=== PATIENT | female | born 1980 | race Caucasian/White ===

== ENCOUNTER → 2017-03-10 | Day surgery (SDC) | payer OTHER ==
[~2017-03-10] MED LIST: ACETAMINOPHEN/HYDROcodone 325 MG/5 MG TAB ONE; BUPIVACAINE HCL PF 0.25% 30 ML VIAL ONE; IRON18TA PO; KETOROLAC TROMETHAMINE 60 MG/2 ML (IM) VIAL IM ONE; LACTATED RINGER'S 1000 ML INJ 1,000 ML ONE; MIDAZOLAM HCL 2 MG/2 ML VIAL ONE; ONDANSETRON HCL 4 MG/2 ML VIAL IV PUSH ONE; OXYC-360 PO; PREN0.01 PO; PROPOFOL 200 MG/20 ML AMP IV ONE; ceFAZolin 2 GM PREMIX 50 ML ONE
--- NOTE | 2017-03-11 07:37 | MP ---
cc: ELENA RAY DPM DATE OF SURGERY 03/10/2017 PREOPERATIVE DIAGNOSIS Left fifth digit mass exostosis, left fourth digit, distal phalanx. POSTOPERATIVE DIAGNOSIS Left fifth digit mass exostosis, left fourth digit, distal phalanx. PROCEDURES PERFORMED 1. Wide excision deep soft tissue mass left fourth digit. 2. Nail avulsion with partial excision left fourth digit distal phalanx/exostectomy. SPECIMEN Left fourth digit soft tissue mass. ESTIMATED BLOOD LOSS Less than 3 mL. ANESTHESIA General anesthesia was used. TOURNIQUET TIME A tourniquet wrapped around the base of the fourth digit by means of a [place] drain for approximately 10 minutes. PLAN OF ACTIVITY PACU then DC home once stable per same-day surgery criteria. JUSTIFICATION FOR THE PROCEDURE This is a pleasant 37-year-old female with a painful soft tissue mass biopsied as dermatofibroma. It has grown quite large and she wished to have it removed to allow her to ambulate and wear normal shoe gear. The patient was educated to remove the soft tissue mass in its entirety. Part of the toe will need to be shortened, a strategic if you will, partial digit distal amputation. To remove the soft tissue, a wide excision needs to take place after avulsing the nail and in order for tissue to close, the distal aspect of the distal phalanx needs to be removed to prevent wound dehiscence and pressure on the excision closure preventing compromise to the dorsal and plantar flap. This was explained in great detail. The toe may look deformed, however the painful lesion will be gone and function should improve. The nail may be deformed as it grows back. there is a possibility of numbness, stinging, burning, chronic irritation. No guarantees were given or implied regarding the outcome. PROCEDURE IN DETAIL Under mild sedation, the patient was brought to the operating room, placed on the operative the supine position. Following the induction of general anesthesia, local anesthesia was obtained about the left fourth digit utilizing standard block fashion. The patient's foot was then scrubbed, prepped and draped in the usual aseptic fashion and a [place] drain was placed around the base of the left fourth digit. A nail avulsion took place gently releasing the subungual attachments to the nail plate utilizing a [place] elevator. A skin scribe was used to elias a fishmouth type incision ellipsing out the dermatofibroma with at least 4 mm margins. Full-thickness incision was then made down to the distal phalanx removing a wedge of skin encompassing the dermatofibroma presumed. This was passed off the field for pathological analysis. The subungual periosteum was then released from the distal phalanx attachments plantarly as well undermining to allow advancing of the dorsal plantar flap. Utilizing power instrumentation, approximately 4 mm of the distal phalanx was removed. The wound was flushed with copious amounts of normal saline. Deep closure took place utilizing a 4-0 Vicryl. Skin was closed utilizing 4-0 nylon. Upon relieving the tourniquet, there was a prompt hyperemic response to all digits with good perfusion to the dorsal and plantar flap of the left fourth digit. A bulky bandage was placed. The patient transferred from OR to PACU with all vital signs stable. She is to heel weight bear to tolerance. She will follow up within three to five days. RONALDO Yeung/SHELLI /1:41 PM /7:28 AM
== END | disposition home or self-care (01) ==
LOC: ESDC 11:31
PROVIDERS: ATTEND Podiatrist Foot & Ankle Surgery
DX: D23.72 Other benign neoplasm of skin of left lower limb, including hip (principal); M25.775 Osteophyte, left foot
CPT/HCPCS: 00400; 01470; 01480; 11730; 28045; 28153; 88305; J0690; J1885; J2250; J2405; J3010; J7120